=== PATIENT | female | born 2000 | race Caucasian/White ===

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

== ENCOUNTER 2018-04-10 23:12 | Emergency (ER) | payer OTHER ==
[~2018-04-10] VITALS: Ht 157.5 cm; Wt 48.1 kg
[2018-04-10 23:16] VITALS: BP 130/81
--- NOTE | 2018-04-10 23:18 | NUR ---
TO BED # 4 AMBULATORY, REPORT GIVEN TO GAB GALVEZ
--- NOTE | 2018-04-10 23:30 | NUR ---
18/F CAME IN ED, C/O DIFFICULTY BREATHING, X2 DAYS. PT REPORTS NONPRODUCTIVE COUGH, 6/10 PLEURITIC CP/PRESSURE, EXACERBATED BY COUGHING. PT STATED SHE STARTED FEELING SYMPTOMS AFTER MOVING IN A NEW PLACE. PT DENIES N/V/D; SKIN IS INTACT, PINK/WARM/DRY; AAOX4, PERRL, WITH EVEN AND STEADY GAIT; LUNGS CLEAR BL, BREATHING UNLABORED; HR EVEN AND REGULAR, BL PERIPHERAL PULSES PRESENT; BS ACTIVE X4, NO TENDERNESS TO PALPATION; PT DENIES ANY FEVER; VSS; PATIENT POSITIONED FOR COMFORT; HOB ELEVATED; BEDRAILS UP X2; BED DOWN.
[2018-04-11] MEDS ORDERED: hydrOXYzine PAMOATE 25 MG CAP PO STA (00:19)
[2018-04-11 00:30] VITALS: BP 124/71
--- NOTE | 2018-04-11 00:30 | NUR ---
Patient discharged with v/s stable. Written and verbal after care instructions given and explained. Patient alert, oriented and verbalized understanding of instructions. Ambulatory with steady gait. All questions addressed prior to discharge. ID band removed. Patient advised to follow up with PMD. Rx of HYDROXYZINE given. Patient educated on indication of medication including possible reaction and side effects. Opportunity to ask questions provided and answered.
== END 2018-04-11 00:30 | disposition home or self-care (01) ==
LOC: MED 23:12
DX: F41.0 Panic disorder [episodic paroxysmal anxiety] (principal)
CPT/HCPCS: 99283; Q0177

== ENCOUNTER 2018-06-22 15:09 | Emergency (ER) | payer SELFPAY ==
[~2018-06-22] VITALS: Ht 157.5 cm; Wt 50.9 kg
[2018-06-22 15:17] VITALS: BP 149/100
--- NOTE | 2018-06-22 15:35 | NUR ---
18 YEAR OLD FEMALE WITH C/O OF VAGINAL PAIN SINCE Tuesday. PT STATES THAT ON TUESDAY THE SHE WENT TO [employer] AND THAT IS WHEN THE PAIN AND SPOTTING STARTED. SHE HAS HAS BOTH SINCE TUESDAY. PT STATES THAT IS HAS NOT GOTTEN BETTER AND NOTHING HELPS THE PAIN. SHE ALSO HAS CRAMPING IN HER ABD AREA SINCE TUESDAY. ABD IS SOFT, TENDER, ACTIVE AND PRESENT BOWEL SOUNDS IN ALL 4 QUADRANTS. PT IS ABLE TO AMBULATE AND FULL RANGE OF MOTION IN ALL EXTREMITIES. PT ALSO STATES THAT HER LABIA MAJORA WAS RED YESTERDAY. LUNG SOUNDS ARE CLEAR BILATERALLY. S1S2 PRESENT. DENIES ALL MEDICAL HX.
--- NOTE | 2018-06-22 15:40 | NUR ---
PT AMBULATES TO BED 9
[2018-06-22 16:34] LABS: APPEARANCE,URINE HAZY (CLEAR); BILIRUBIN,URINE 1+ (NEGATIVE); BLOOD, URINE 3+ (NEGATIVE); COLOR,URINE ORANGE (YELLOW); LEUKOCYTE ESTERASE ,URINE 3+ (NEGATIVE); NITRITE, URINE POSITIVE (NEGATIVE); UGLUCOSE 1+ (NEGATIVE)
[2018-06-22 17:03] LABS: RBC,URINE 11-20 (MOD) /HPF (0-5)
[2018-06-22 18:37] VITALS: BP 129/89
--- NOTE | 2018-06-22 18:38 | NUR ---
D/C PT HOME WITH MEDICATION AND EDUCATION. ANSWERED ALL QUESTIONS AND PT DENIED FURTHER QUESTIONS. PT STATED THAT SHE DOES NOT HAVE FURTHER QUESTION. PT AMBULATED TO EXIT.
== END 2018-06-22 18:38 | disposition home or self-care (01) ==
LOC: MED 15:09
DX: B37.3 Candidiasis of vulva and vagina (principal)
CPT/HCPCS: 81001; 81025; 87086; 87210; 99284

== ENCOUNTER 2021-04-14 20:23 | Emergency (ER) | payer SELFPAY ==
[~2021-04-14] VITALS: Ht 157.5 cm; Wt 57.6 kg
[2021-04-14 20:29] VITALS: BP 144/97
[2021-04-14 20:58] LABS: BASOPHILS % (AUTO) 0.5 % (0.0-2.0); EOSINOPHILS # (AUTO) 0.1 K/uL (0-0.4); EOSINOPHILS % (AUTO) 1.1 % (0.0-4.0); HEMOGLOBIN 13.3 g/dL (12.0-16.0); LYMPHOCYTES # (AUTO) 2.8 K/uL (2.5-16.5); LYMPHOCYTES % (AUTO) 31.6 % (20.5-51.1); MEAN CORPUSCULAR HEMOGLOBIN 27 pg (27-31); MEAN CORPUSCULAR HGB CONC 33 g/dL (33-37); MEAN CORPUSCULAR VOLUME 81.5 fL (80-94); MONOCYTES # (AUTO) 0.7 K/uL (0.8-1.0); MONOCYTES % (AUTO) 8.3 % (1.7-9.3); NEUTROPHILS # (AUTO) 5.1 K/uL (1.8-7.7); NEUTROPHILS % (AUTO) 58.5 % (42.2-75.2); PLATELET COUNT (AUTO) 316 K/uL (140-450); RED BLOOD CELL COUNT(AUTO) 5.03 MIL/uL (4.20-5.40); RED CELL DISTRIBUTION WIDTH 15.4 % (11.6-13.7); WHITE BLOOD COUNT (AUTO) 8.7 K/uL (4.8-10.8)
[2021-04-14 21:00] VITALS: BP 144/97
--- NOTE | 2021-04-14 21:13 | NUR ---
pt ambulatory to bed #6
[2021-04-14 21:14] LABS: ALBUMIN 4.3 g/dL (3.4-5.0); ANION GAP 9.5 (8-16); CARBON DIOXIDE 31.4 mmol/L (21-32); CREATININE 0.8 mg/dL (0.6-1.3); POTASSIUM 3.9 mmol/L (3.5-5.1); TOTAL BILIRUBIN 0.3 mg/dL (0.0-1.0)
--- NOTE | 2021-04-14 21:30 | NUR ---
21 Y/O FEMALE PATIENT PRESENTS TO ED WITH LOWER ABDOMINAL PAIN. PT STATES "I HAVE SHARP LOWER ABDOMINAL PAIN THAT RADIATES TO LOWER BACK OF 06/12" . DENIES N/V/D; SKIN IS PINK/WARM/DRY; AAOX4 WITH EVEN AND STEADY GAIT; LUNGS CLEAR BL; HR EVEN AND REGULAR; PT DENIES ANY FEVER, CP, SOB, OR COUGH AT THIS TIME; PATIENT STATES PAIN OF 9/10 AT THIS TIME; VSS; PATIENT POSITIONED FOR COMFORT; HOB ELEVATED; BEDRAILS UP X2; BED DOWN. ER MADE AWARE OF PT STATUS. NKA PMH: DENIES Addendum: 04/14/21 at 2212 by MNURCHussain PMH: HX OF OVARIAN CYST
[2021-04-14 22:10] LABS: APPEARANCE,URINE CLEAR (CLEAR); BILIRUBIN,URINE NEGATIVE (NEGATIVE); BLOOD, URINE NEGATIVE (NEGATIVE); COLOR,URINE YELLOW (YELLOW); LEUKOCYTE ESTERASE ,URINE NEGATIVE (NEGATIVE); NITRITE, URINE NEGATIVE (NEGATIVE); UGLUCOSE NEGATIVE (NEGATIVE)
[2021-04-15] MEDS ORDERED: IBUP-2213 PO (01:29)
== END 2021-04-15 01:45 | disposition home or self-care (01) ==
LOC: MED 20:23
DX: R10.9 Unspecified abdominal pain (principal); Z79.899 Other long term (current) drug therapy
CPT/HCPCS: 36415; 76856; 80053; 81003; 81025; 85025; 99283

== ENCOUNTER 2022-09-27 13:01 | Emergency (ER) | payer SELFPAY ==
[~2022-09-27] VITALS: Ht 157.5 cm; Wt 64.5 kg
[~2022-09-27 13:01] MED LIST: IBUP-2213 PO
[2022-09-27 13:19] VITALS: BP 142/98
[2022-09-27] MEDS ORDERED: PROM118S5 PO (14:07)
[2022-09-27] MEDS ORDERED: IBUP-2213 PO (14:07)
--- NOTE | 2022-09-27 14:49 | NUR ---
PT UP FOR D/C BY JOAN QIU. PT LEFT WITH DISCHARGE PAPERWORK. RX OF IBUPROFEN AND PROMETHAZINE-DM SENT TO [facility].
== END 2022-09-27 14:49 | disposition left against medical advice (07) ==
LOC: MED 13:01
DX: J06.9 Acute upper respiratory infection, unspecified (principal); Z20.822 Contact with and (suspected) exposure to COVID-19
CPT/HCPCS: 87081; 99283

== ENCOUNTER 2023-03-02 22:03 | Emergency (ER) | payer SELFPAY ==
[~2023-03-02] VITALS: Ht 157.5 cm; Wt 65.8 kg
[~2023-03-02 22:03] MED LIST changes: +PROM118S5 PO
[2023-03-02 22:20] VITALS: BP 139/96
--- NOTE | 2023-03-02 22:29 | NUR ---
Dr. Joshi examining patient.
--- NOTE | 2023-03-02 22:59 | NUR ---
PT TO BED #1
[2023-03-02] MEDS ORDERED: VALA1TAB40 PO (23:02)
[2023-03-02] MEDS ORDERED: BACI-416 TP (23:02)
--- NOTE | 2023-03-02 23:10 | NUR ---
Patient discharged with v/s stable. Written and verbal after care instructions given and explained. Patient alert, oriented and verbalized understanding of instructions. Ambulatory with steady gait. All questions addressed prior to discharge. ID band removed. Patient advised to follow up with PMD. Rx of bacitracin and valacyclovir given. Opportunity to ask questions provided and answered.
== END 2023-03-02 23:10 | disposition home or self-care (01) ==
LOC: MED 22:03
DX: R21 Rash and other nonspecific skin eruption (principal); Z79.899 Other long term (current) drug therapy
CPT/HCPCS: 99283